=== PATIENT | male | born 1955 | race Caucasian/White ===

== ENCOUNTER → 2019-03-19 | Outpatient (CLI) | payer BC ==
--- NOTE | 2019-03-19 11:50 | KCIC ---
MRI study left shoulder without contrast Clinical indications: Chronic left shoulder pain which has become worse in the last 3 months. Decreased range of motion. TECHNIQUE: Noncontrast MRI sequences of the left shoulder were performed in all 3 planes. FINDINGS: There is increased signal within the supraspinatus tendon consistent with tendinosis. No complete rotator cuff tear is evident. The subscapularis tendon is intact. The tendon of the long of the biceps is intact. No muscle atrophy is seen. No subdeltoid or subacromial bursitis is evident. There is mild degenerative spurring and osteoarthritis of the AC joint. Mild spurring of the lateral inferior edge of the acromial process is seen. Type III acromial process is seen. These findings may impinge the acromial humeral space. Mild chronic cystic change of the posterior lateral aspect of the humeral head is seen secondary to chronic impingement. No marrow infiltrative process or fracture is evident. There is mild degenerative spurring of the glenohumeral joint. Small glenohumeral joint effusion is seen. No loose body is evident. Small focus of linear increased signal is seen extending through the superior glenoid labrum. No paralabral ganglion cyst or spinoglenoid notch ganglion cyst is seen. IMPRESSION: Tendinosis of the supraspinatus tendon. No rotator cuff tear is seen. Impingement of the acromial humeral space. No subdeltoid or subacromial bursitis is seen. 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 Small glenohumeral joint effusion. Possible small tear of the superior glenoid labrum. Electronically signed by: Cameron Webb MD (03/19/2019 11:47 AM) [id number]
== END | disposition home or self-care (01) ==
LOC: KCIC MRI 09:43
PROVIDERS: ATTEND Physician Assistant Medical
DX: M19.012 Primary osteoarthritis, left shoulder (principal); M75.42 Impingement syndrome of left shoulder; M25.412 Effusion, left shoulder; M75.82 Other shoulder lesions, left shoulder; G89.29 Other chronic pain; Z85.46 Personal history of malignant neoplasm of prostate
CPT/HCPCS: 73221

== ENCOUNTER → 2021-09-25 | Outpatient (CLI) | payer BC, MEDICARE ==
[~2021-09-25] MED LIST: GADOTERATE 5 MMOL/10ML VIAL. IVP ONE
--- NOTE | 2021-09-25 13:49 | KCIC ---
EXAM: MRI BRAIN WITH AND WITHOUT CONTRAST. HISTORY: Left facial droop, left weakness. TECHNIQUE: Magnetic resonance images of the brain were obtained before and after the intravenous admi nistration of gadolinium contrast. COMPARISON: 09/19/2021. FINDINGS: Diffusion restriction within the right winston spans 2.3 x 1.3 cm. There is associated FLAIR h yperintensity consistent with an acute to subacute infarct. There are no enhancing lesions. Scattered foci of white matter T2/FLAIR hyperintensity are nonspecifi c but likely indicate mild chronic microangiopathic change. Foci of signal loss on T2-weighted series 5 are not reproduced on T2*or other series and may be an artifact. Prominence of the lateral ventric les and hemispheric sulci indicates mild atrophy. The paranasal sinuses are clear. The orbits are unremarkable. The temporal bones are unremarkable. Th e calvarium demonstrates no suspicious lesions. IMPRESSION: 1. 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 2. Mild atrophy and chronic microangiopathic white matter change. Electronically signed by: Nguyen Macedo MD (09/25/2021 1:47 PM) [id number]
== END ==
LOC: KCIC MRI 12:16
PROVIDERS: ATTEND Physician Assistant Medical
DX: I63.89 Other cerebral infarction (principal); R90.82 White matter disease, unspecified; G31.9 Degenerative disease of nervous system, unspecified; R29.810 Facial weakness
CPT/HCPCS: 70553; A9575